=== PATIENT | female | born 1955 | race Caucasian/White ===

== ENCOUNTER 2023-03-05 17:18 | Emergency (ER) | payer MEDICARE ==
[~2023-03-05] VITALS: Ht 162.6 cm; Wt 122.2 kg
[2023-03-05 18:06] LABS: BASO % 0.2 % (0.0-1.0); EOS # 0.2 10^3/uL (0.0-0.5); EOS % 0.9 % (0.0-3.0); HEMATOCRIT 42.5 % (36.0-47.0); HEMOGLOBIN 13.4 g/dl (12.0-15.5); LYMPH # 1.2 10^3/uL (1.5-5.0); LYMPH % 6.9 % (24.0-44.0); MEAN CORPUSCULAR HEMOGLOBIN 30.1 pg (27.0-33.0); MEAN CORPUSCULAR HGB CONC 31.5 g/dl (32.0-36.5); MEAN CORPUSCULAR VOLUME 95.5 fl (80.0-96.0); MONO % 5.6 % (2.0-8.0); NEUTROPHILS # 14.5 10^3/uL (1.5-8.5); PLATELET COUNT, AUTOMATED 194 10^3/uL (150-450); RED BLOOD COUNT 4.45 10^6/uL (4.00-5.40); WHITE BLOOD COUNT 16.9 10^3/uL (4.0-10.0)
[2023-03-05 18:21] LABS: AMYLASE 58 U/L (30-118)
[2023-03-05 18:22] LABS: ALBUMIN 3.1 G/DL (3.2-5.2); ALKALINE PHOSPHATASE 455 U/L (46-116); ALT/SGPT 345 U/L (7.0-40); AST/SGOT 336 U/L (<34); BILIRUBIN,DIRECT 1.7 MG/DL (<0.4); BILIRUBIN,TOTAL 2.3 MG/DL (0.3-1.2); BLOOD UREA NITROGEN 11 MG/DL (9-23); CARBON DIOXIDE LEVEL 30 MMOL/L (20-31); CHLORIDE LEVEL 103 MMOL/L (98-107); CREATININE FOR GFR 0.72 MG/DL (0.55-1.30); GLOMERULAR FILTRATION RATE > 60.0 (>45); GLUCOSE, FASTING 150 MG/DL (74-106); POTASSIUM SERUM 3.5 MMOL/L (3.5-5.1); SODIUM LEVEL 139 MMOL/L (136-145); TOTAL PROTEIN 7.1 G/DL (5.7-8.2)
[2023-03-05 18:31] LABS: INR 1.04; PROTHROMBIN TIME 13.8 SECONDS (12.5-14.5)
[2023-03-05 18:32] LABS: PARTIAL THROMBOPLASTIN TIME 26.9 SECONDS (24.8-34.2)
[2023-03-05 18:43] LABS: LIPASE 42 U/L (12-53)
[2023-03-05 18:51] LABS: RSV AMPLIFICATION NEGATIVE (NEGATIVE)
[2023-03-05] MEDS ORDERED: LEVO1TAB40 PO (19:09)
[2023-03-05] MEDS ORDERED: LEVO50TA5 PO (19:09)
[2023-03-05] MEDS ORDERED: ACET-683 PO (19:09)
[2023-03-05] MEDS ORDERED: ATEN25TA PO (19:09)
[2023-03-05] MEDS ORDERED: ONDANSETRON 4MG 2ML VIAL IV ONE (20:15)
[2023-03-05] MEDS ORDERED: MORPHINE 4 MG/ML 1ML VIAL IV ONE (20:15)
[2023-03-06] MEDS ORDERED: NS 1,000 ML IV ONE (01:20)
[2023-03-06] MEDS ORDERED: PIPERACILLIN/TAZOBACTAM SOD 4.5 GM in D5W MINI-BAG PLUS 50 ML IV ONE (01:20)
[2023-03-06 06:30] VITALS: BP 141/76
== END 2023-03-06 06:55 | disposition short-term general hospital (02) ==
LOC: M ED 17:18
DX: K83.09 Other cholangitis (principal); K83.1 Obstruction of bile duct; I10 Essential (primary) hypertension; E03.9 Hypothyroidism, unspecified; Z88.6 Allergy status to analgesic agent; Z79.1 Long term (current) use of non-steroidal anti-inflammatories (NSAID); Z79.899 Other long term (current) drug therapy
CPT/HCPCS: 74181; 80048; 80076; 81001; 82150; 83605; 83690; 85025; 85610; 85730; 87631; 93041; 96365; 96366; 96375; 99285; J2405; J2543